=== PATIENT | female | born 1970 | race African-American/Black ===

== ENCOUNTER 2024-08-10 07:53 | Inpatient (IN) | payer MEDICAID, OTHER ==
[~2024-08-10] VITALS: Ht 162.6 cm; Wt 66.0 kg
[2024-08-10 09:07] LABS: INR 1.2; PROTHROMBIN TIME 12.6 sec (9.6-11.0)
[2024-08-10 09:19] LABS: HEMATOCRIT. 23.5 % (36.0-48.0); HEMOGLOBIN. 7.8 g/dL (12.0-16.0); MEAN CORPUSCULAR HEMOGLOBIN 31.4 pg (28.0-32.0); MEAN CORPUSCULAR VOLUME 95.1 fL (81.0-99.0); MEAN PLATELET VOLUME 8.4 fl (7.4-10.4); PLATELET 596 x1000/uL (130-400); RED BLOOD CELL COUNT 2.47 mill/uL (4.2-5.4); RED CELL DISTRIBUTION WIDTH 14.8 % (11.6-14.6); WHITE BLOOD COUNT 11.7 x1000/uL (4.5-11.0)
[2024-08-10 09:21] LABS: DIFFERENTIAL COMMENT 1
[2024-08-10 09:25] LABS: CHLORIDE 92 mEq/L (98-107); POTASSIUM 4.5 mEq/L (3.5-5.1); SODIUM 132 mEq/L (136-145)
[2024-08-10 09:26] LABS: CARBON DIOXIDE 24 mEq/L (21-32)
[2024-08-10 09:32] LABS: GLUCOSE 228 mg/dL (70-105); UREA NITROGEN BLOOD 50 mg/dL (9-23)
[2024-08-10 09:33] LABS: ALANINE AMINOTRANSFERASE 34 IU/L (10-49); ALBUMIN 4.5 g/dL (3.2-4.8); ASPARTATE AMINOTRANSFERASE 25 IU/L (<34)
[2024-08-10 09:34] LABS: BILIRUBIN DIRECT 0.2 mg/dL (<=3.0); BILIRUBIN TOTAL 0.5 mg/dL (0.1-1.0); PROTEIN TOTAL 8.6 g/dL (6.0-8.3)
[2024-08-10] MEDS: ONDANSETRON HCL 4MG/2ML INJ IV STA (09:34)
[2024-08-10] MEDS: SODIUM CHLORIDE 0.9% 1,000 ML IV ONE (09:35)
[2024-08-10] MEDS: VISCOUS LIDOCAINE 2% 15 ML UDC PO STA (09:51)
[2024-08-10] MEDS: KETOROLAC 30MG/ML VIAL IV STA (09:51)
[2024-08-10 09:53] LABS: CREATININE 5.4 mg/dL (0.6-1.0)
[2024-08-10 10:34] LABS: PLATELET ESTIMATE INCREASED; ROULEAUX 1+
[2024-08-10] MEDS ORDERED: CEFTRIAXONE 1,000 MG in DEXT 5% WATER 100 ML IV SCH (11:45)
[2024-08-10] MEDS ORDERED: DEXTROSE 50% WATER 50ML SYRINGE IV PRN (11:45)
[2024-08-10] MEDS ORDERED: ACETAMINOPHEN 325MG TABLET PO PRN (11:45)
[2024-08-10] MEDS ORDERED: HYDROCODONE/ACETAMINOPHEN 5/325MG TABLET PO PRN (11:45)
[2024-08-10] MEDS ORDERED: CLONIDINE 0.1MG TABLET PO PRN (11:45)
[2024-08-10] MEDS ORDERED: ENOXAPARIN 40MG/0.4ML SYR SUBCUT SCH (11:45)
[2024-08-10] MEDS ORDERED: ZOLPIDEM TARTRATE 5MG TABLET PO PRN (11:45)
[2024-08-10] MEDS ORDERED: NALOXONE HCL 0.4MG/ML VIAL IV PRN (12:00)
[2024-08-10] MEDS: BLOOD SUGAR DIAGNOSTIC STRIP TEST SCH (13:00)
[2024-08-10] MEDS ORDERED: VISCOUS LIDOCAINE 2% 15 ML UDC PO NR (13:15)
[2024-08-10] MEDS: KETOROLAC 30MG/ML VIAL IV NR (13:28)
[2024-08-10] MEDS: DICYCLOMINE 10 MG/5 ML ORAL SYR PO STA (13:38)
[2024-08-10] MEDS: MAGNESIUM/ALUMINUM HYDROXIDE/SIMETHICONE 30ML UDC PO STA (15:50)
[2024-08-10] MEDS: SODIUM CHLORIDE 0.9% 1,000 ML IV SCH (15:50)
[2024-08-10 16:00] VITALS: BP 118/82; PULSE 102; RESP 18; TEMP 36.6
[2024-08-10] MEDS ORDERED: ASPI-986 MT (16:24)
[2024-08-10] MEDS ORDERED: TICA90TA PO (16:25)
[2024-08-10] MEDS ORDERED: METO25TA6 PO (16:26)
[2024-08-10] MEDS ORDERED: ROSU40TA PO (16:27)
[2024-08-10] MEDS ORDERED: ALD100 PO (16:28)
[2024-08-10] MEDS: MAGNESIUM/ALUMINUM HYDROXIDE/SIMETHICONE 30ML UDC PO NR (17:53)
[2024-08-10] MEDS: ENOXAPARIN 30MG/0.3ML SYR SUBCUT SCH (17:57)
[2024-08-10] MEDS: INSULIN LISPRO 100 UNITS/ML SUBCUT SCH (18:08)
[2024-08-10 19:51] LABS: URIC ACID 8.5 mg/dL (3.1-7.8)
[2024-08-10 20:00] VITALS: BP 130/81; PULSE 107; RESP 19; TEMP 36.2; O2SAT 100
[2024-08-10] MEDS: CEFTRIAXONE 1GM/50ML 50ML IV SCH (21:27)
[2024-08-10] MEDS: INSULIN GLARGINE 100 UNITS/ML SUBCUT SCH (23:00)
[2024-08-11] VITALS: BP 118/77; PULSE 102; RESP 20; TEMP 36.2; O2SAT 100
[2024-08-11 04:00] VITALS: BP 119/78; PULSE 98; RESP 20; TEMP 36.2; O2SAT 100
[2024-08-11 06:49] LABS: HEMATOCRIT. 21.5 % (36.0-48.0); HEMOGLOBIN. 7.2 g/dL (12.0-16.0); MEAN CORPUSCULAR HEMOGLOBIN 32.4 pg (28.0-32.0); MEAN CORPUSCULAR HGB CONC 33.7 g/dL (31.0-37.0); MEAN PLATELET VOLUME 8.4 fl (7.4-10.4); PLATELET 503 x1000/uL (130-400); RED BLOOD CELL COUNT 2.24 mill/uL (4.2-5.4); RED CELL DISTRIBUTION WIDTH 15.2 % (11.6-14.6); WHITE BLOOD COUNT 10.9 x1000/uL (4.5-11.0)
[2024-08-11 06:51] LABS: DIFFERENTIAL COMMENT 1
[2024-08-11 07:07] LABS: CALCIUM 8.8 mg/dL (8.7-10.4)
[2024-08-11 07:26] LABS: CREATININE 5.5 mg/dL (0.6-1.0)
[2024-08-11 08:00] VITALS: BP 139/84; PULSE 102; RESP 18; TEMP 36.2; O2SAT 100
[2024-08-11] MEDS: ONDANSETRON HCL 4MG/2ML INJ IV PRN (08:03)
[2024-08-11] MEDS: PANTOPRAZOLE SODIUM 40 MG/VIAL IV SCH (08:03)
[2024-08-11 10:42] LABS: ANISOCYTOSIS 1+; PLATELET ESTIMATE INCREASED
[2024-08-11 11:30] LABS: CLARITY URINE CLOUDY (CLEAR); COLOR URINE YELLOW (YELLOW); GLUCOSE URINE 2+ (NEGATIVE); KETONES URINE TRACE (NEGATIVE); LEUKOCYTE ESTERASE URINE NEGATIVE (NEGATIVE); NITRITE URINE NEGATIVE (NEGATIVE); OCCULT BLOOD URINE TRACE (NEGATIVE); PH URINE 5.5 (4.5-8.0); PROTEIN URINE 2+ (NEGATIVE); SPECIFIC GRAVITY URINE 1.015 (1.005-1.030); UROBILINOGEN URINE 0.2 E.U./dL (0.2-1.0)
[2024-08-11 11:51] LABS: *AMPHETAMINES SCREEN URINE NEGATIVE (NEGATIVE); *BARBITURATES SCREEN URINE NEGATIVE (NEGATIVE); *BENZODIAZEPINES SCREEN URINE NEGATIVE (NEGATIVE); *COCAINE SCREEN URINE NEGATIVE (NEGATIVE); CANNABINOID URINE SCREEN NEGATIVE (NEGATIVE); ECSTASY MDMA SCREEN URINE NEGATIVE (NEGATIVE); METHADONE URINE SCREEN NEGATIVE (NEGATIVE); OPIATES URINE SCREEN NEGATIVE (NEGATIVE); PHENCYCLIDINE URINE SCREEN NEGATIVE (NEGATIVE)
[2024-08-11 12:00] VITALS: BP 120/80; PULSE 88; RESP 17; TEMP 36.2; O2SAT 96
[2024-08-11 12:08] LABS: SQUAMOUS EPITHELIAL CELL URINE 1+ /lpf (RARE/1+)
[2024-08-11 12:10] LABS: BACTERIA URINE 1+
[2024-08-11 12:11] LABS: RBC URINE 0-2 /hpf (0-2); WBC URINE 0-2 /hpf (0-2)
[2024-08-11 16:00] VITALS: BP 98/50; PULSE 75; RESP 16; TEMP 36.2; O2SAT 98
[2024-08-11] MEDS: INSULIN LISPRO 100 UNITS/ML SUBCUT NR (16:34)
[2024-08-11] MEDS ORDERED: INSULIN LISPRO 100 UNITS/ML SUBCUT SCH (18:30)
[2024-08-11 19:27] VITALS: BP 98/50; PULSE 75; TEMP 97.2; O2SAT 98
[2024-08-12 09:07] LABS: COMPLEMENT C3 198 mg/dL (82-167); COMPLEMENT C4 27 mg/dL (12-38)
[2024-08-12 13:07] LABS: ANTI-NUCLEAR ANTIBODIES DIRECT Negative (Negative)
[2024-08-15 06:07] LABS: A/G RATIO 0.6 (0.7-1.7); ALBUMIN 2.7 g/dL (2.9-4.4); ALPHA-1-GLOBULIN 0.4 g/dL (0.0-0.4); ALPHA-2-GLOBULIN 1.7 g/dL (0.4-1.0); BETA GLOBULIN 1.1 g/dL (0.7-1.3); GAMMA GLOBULINS 1.7 g/dL (0.4-1.8); GLOBULIN TOTAL 4.8 g/dL (2.2-3.9); M-SPIKE Not Observed g/dL (Not Observed); TOTAL PROTEIN SERUM 7.5 g/dL (6.0-8.5)
== END 2024-08-11 19:50 | disposition short-term general hospital (02) | DRG 641 ==
LOC: ER 07:53 → 6WST 11:11 → EDBEDREQTM 13:32 → EDBEDREQ 13:32
PROVIDERS: ADMIT Internal Medicine; ATTEND Internal Medicine
DX: E87.1 Hypo-osmolality and hyponatremia (principal); N17.9 Acute kidney failure, unspecified; G35 Multiple sclerosis; I12.9 Hypertensive chronic kidney disease with stage 1 through stage 4 chronic kidney disease, or unspecified chronic kidney disease; I25.10 Atherosclerotic heart disease of native coronary artery without angina pectoris; E11.65 Type 2 diabetes mellitus with hyperglycemia; D64.9 Anemia, unspecified; N18.9 Chronic kidney disease, unspecified; E11.22 Type 2 diabetes mellitus with diabetic chronic kidney disease; Z95.5 Presence of coronary angioplasty implant and graft; Z79.4 Long term (current) use of insulin; Z79.899 Other long term (current) drug therapy; Z88.8 Allergy status to other drugs, medicaments and biological substances; Z79.82 Long term (current) use of aspirin
CPT/HCPCS: 36415; 71045; 76770; 80048; 80076; 80305; 81003; 82550; 82962; 83036; 84155; 84165; 84550; 85025; 86038; 86160; 92610; 93005; 93970; 99285; A4606; J0696; J1650; J1815; J1885; J2405; J2470; J7030

== ENCOUNTER 2024-08-21 16:47 | Emergency (ER) | payer OTHER ==
[~2024-08-21] VITALS: Ht 162.6 cm; Wt 64.0 kg
[~2024-08-21 16:47] MED LIST: ALD100 PO; ASPI-986 MT; METO25TA6 PO; ROSU40TA PO; TICA90TA PO
[2024-08-21 16:54] VITALS: O2SAT 95
[2024-08-21 19:15] LABS: HEMATOCRIT. 25.7 % (36.0-48.0); HEMOGLOBIN. 8.6 g/dL (12.0-16.0); MEAN CORPUSCULAR HEMOGLOBIN 31.8 pg (28.0-32.0); MEAN CORPUSCULAR HGB CONC 33.3 g/dL (31.0-37.0); MEAN CORPUSCULAR VOLUME 95.4 fL (81.0-99.0); MEAN PLATELET VOLUME 8.8 fl (7.4-10.4); PLATELET 446 x1000/uL (130-400); RED BLOOD CELL COUNT 2.69 mill/uL (4.2-5.4); RED CELL DISTRIBUTION WIDTH 16.1 % (11.6-14.6); WHITE BLOOD COUNT 12.6 x1000/uL (4.5-11.0)
[2024-08-21 19:20] LABS: DIFFERENTIAL COMMENT 1
[2024-08-21 19:22] LABS: CHLORIDE 101 mEq/L (98-107); POTASSIUM 3.5 mEq/L (3.5-5.1); SODIUM 135 mEq/L (136-145)
[2024-08-21 19:24] LABS: CALCIUM 8.6 mg/dL (8.7-10.4); CARBON DIOXIDE 25 mEq/L (21-32)
[2024-08-21] MEDS: LOPERAMIDE HCL 2MG CAPSULE PO ONE (19:25)
[2024-08-21] MEDS: ACETAMINOPHEN 325MG TABLET PO ONE (19:26)
[2024-08-21 19:29] LABS: CREATININE 1.1 mg/dL (0.6-1.0); GLUCOSE 249 mg/dL (70-105); UREA NITROGEN BLOOD 9 mg/dL (9-23)
[2024-08-21 19:34] LABS: ANISOCYTOSIS 1+; PLATELET ESTIMATE INCREASED
[2024-08-21] MEDS ORDERED: CIPR500S3 PO (22:51)
[2024-08-21] MEDS ORDERED: LOPE1LIQ42 PO (22:51)
[2024-08-21] MEDS: ONDANSETRON 4MG ODT PO ONE (23:38)
[2024-08-21] MEDS: LEVOFLOXACIN 500MG TABLET PO ONE (23:39)
[2024-08-22 02:03] LABS: CLARITY URINE CLEAR (CLEAR); COLOR URINE YELLOW (YELLOW); GLUCOSE URINE 3+ (NEGATIVE); KETONES URINE 1+ (NEGATIVE); LEUKOCYTE ESTERASE URINE TRACE (NEGATIVE); NITRITE URINE NEGATIVE (NEGATIVE); OCCULT BLOOD URINE NEGATIVE (NEGATIVE); PROTEIN URINE 2+ (NEGATIVE); SPECIFIC GRAVITY URINE 1.025 (1.005-1.030); UROBILINOGEN URINE 0.2 E.U./dL (0.2-1.0)
[2024-08-22 02:37] VITALS: BP 122/79; PULSE 115; RESP 17; TEMP 36.9; O2SAT 98
[2024-08-22 02:38] LABS: SQUAMOUS EPITHELIAL CELL URINE 1+ /lpf (RARE/1+)
[2024-08-22 02:42] LABS: BACTERIA URINE 1+
== END 2024-08-22 02:39 | disposition home or self-care (01) ==
LOC: ER 16:47
DX: R19.7 Diarrhea, unspecified (principal); I25.2 Old myocardial infarction; Z79.82 Long term (current) use of aspirin; Z79.02 Long term (current) use of antithrombotics/antiplatelets; Z95.5 Presence of coronary angioplasty implant and graft; Z79.899 Other long term (current) drug therapy; Z88.8 Allergy status to other drugs, medicaments and biological substances
CPT/HCPCS: 99285; 80048; 81003; 85025; 36415; Q0162